=== PATIENT | male | born 1955 | race Caucasian/White ===

== ENCOUNTER 2017-12-21 22:15 | Inpatient (IN) ==
[2017-12-21] MEDS ORDERED: *HR* Bivalirudin 250 MG VIAL IVC ONE (22:41)
[2017-12-21] MEDS ORDERED: 0.9 % Sodium Chloride 1,000 ML ONE ×2 (22:41→22:48)
[2017-12-21] MEDS ORDERED: ISOVUE-370 200 ML INFUS..BTL IV ONE ×2 (22:41→23:44)
[2017-12-21] MEDS ORDERED: Heparin 1,000 UNITS/500 mL 500 ML ONE (22:41)
[2017-12-21] MEDS ORDERED: *HR* Heparin 10,000 UNIT/10 ML VIAL ONE (22:41)
[2017-12-21] MEDS ORDERED: Nitroglycerin 1,000 MCG/10 ML VIAL IV ONE (22:42)
[2017-12-21] MEDS ORDERED: *HR* Midazolam HCl 5 MG/5 ML VIAL IVP ONE (23:14)
[2017-12-21] MEDS ORDERED: *HR* Atropine Sulfate 1 MG/10 ML SYRINGE ONE (23:19)
[2017-12-21] MEDS ORDERED: Nitroglycerin 25 MG/250 ML INFUS..BTL IVC ONE (23:57)
[2017-12-22] MEDS ORDERED: Ondansetron 4 MG/2 ML VIAL IVP PRN
[2017-12-22] MEDS ORDERED: Nitroglycerin 0.4 MG TAB.SUBL SL PRN
[2017-12-22] MEDS: 0.9 % Sodium Chloride 1,000 ML IVC SCH ×2 (00:10→02:12)
[2017-12-22] MEDS: Nitroglycerin 25 MG/250 ML INFUS..BTL IVC SCH ×2 (00:10→22:00)
--- NOTE | 2017-12-22 00:25 | Pre-Sedation Evaluation ---
Pre-sedation evaluation - Pre-sedation checklist Date of procedure: 12/21/17 Procedure: left heart cath H&P (including ROS) documented in medical record: No (H&P performed preprocedure on pt arrival, documented post procedure ) Previous reaction to sedatives/anesthetics: No Dietary Status: unknown Airway Assessment: Patient can open mouth completely, TMJ function normal Dentition: No loose teeth or bridges Possible difficult airway: No ASA Classification *see protocol: CLASS IV-Severe systemic disease/constant threat to pt's life Plan of Care: Pt appropriate candidate for procedure/moderate/conscious sedation , Risks/benefits of procedure/sedation discussed w/ patient/family, If not NPO; Risk of intake outweiged by necessity to perform procedure Cardiac Registry (Cardio Only) - Functional Capacity Functional Capacity: >=4 METS without symptoms - Clincal Frailty Scale Clinical Frailty Scale: Well
--- NOTE | 2017-12-22 00:33 | Cardiology History & Physical ---
Date of Encounter: 12/22/17 Time of Encounter: 23:20 Assessment and Plan (1) ST elevation (STEMI) myocardial infarction involving left anterior descending coronary artery Current Visit: Yes Status: Acute The assessment and plan as outlined above was discussed with the patient and/or family members who expressed understanding and agreement. All questions were answered. Note H&P performed before begining LHC, documented post procedure to facilitate emergent LHC.possible. PT continues to have retosternal chest pain, initially improved with sublingual ntg, has returned, recoommend emergent LHC/poss, risk and benefits discussed, pt agrees to proceed. (2) Hypertension Current Visit: Yes Status: Acute The assessment and plan as outlined above was discussed with the patient and/or family members who expressed understanding and agreement. All questions were answered. blood pressure not fully controlled, add ntg drip to control bp for sheath management. Qualifiers: Hypertension type: essential hypertension Qualified Code(s): I10 - Essential (primary) hypertension (3) Hyperlipidemia Current Visit: Yes Status: Acute The assessment and plan as outlined above was discussed with the patient and/or family members who expressed understanding and agreement. All questions were answered. Pt reports his numbers have been borderline, will obtian fasting lipid profile. Qualifiers: Hyperlipidemia type: mixed hyperlipidemia Qualified Code(s): E78.2 - Mixed hyperlipidemia History of Present Illness Chief complaint: chest pain HPI: Mr. 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 He spent approximately fourteen hours mowing, feeding cattle ect before onset of symptoms. He sat down when diaphorsis started, felt mildly nauseous, then went inside air conditioned house. He sat for approximately thirty minutes before developed chest pain, retrosternal, pressure sensation, 8/10 at most severe, associated with mild nausea, diaphoresis, and shortness of breath. Pt went by private auto to ER, found to have ST seg elevation ME, given sl ntg with reduction in pain from 8 to 4/10, sent by ambulance to [facility] for emergent PCI for STEMI. PT is experiencing 5/10 chest pain on arrival in cath labs, shortness of breath, nausea and diaphoresis have resolved. This is his first episode of chest pain, known cardiac risk factors include morbid obesity, hypertension and hyperlipidemia. Past Med Surg Social Fam HX - Past Medical History Source: patient Medical history: hyperlipidemia, hypertension - Past Surgical History Surgical History: no surgical history - Social History Smoking Status: Smoker, status unknown Alcohol use: occasionally Drug use: none Occupational status: employed Current living situation: Home - Independent Activity Level: Independent ambulation Recent Out of Country Travel Within the Last 8 Weeks: Yes Exposure or Possible Exposure to Illness During Travel: Yes Medications and Allergies Lisinopril [Zestril] 12/22/17 [History] Lisinopril [Zestril] PO DAILY 12/22/17 [History] 3 Allergy/AdvReac Type Severity Reaction Status Date / Time Unable to Assess Allergy Unverified 12/21/17 22:44 All Systems Review: The remainder of the systems were reviewed and are negative - Cardiovascular Cardiovascular: chest pain at rest, diaphoresis, dyspnea at rest Physical Examination General: Conversant Neck: No JVD, Normal carotid pulses Cardiac: Reg Rate and Rhythm, Normal S1 and S2, No Murmur Lungs: Normal Breath Sounds Neuro: Alert and responsive, No focal deficits noted Abdomen: Soft, Non-Tender, Other (mildly obese) Skin: No rashes noted on visualized skin Musculoskeletal: No Chest Wall Tenderness Extremities: No Clubbing, No Cyanosis, No Edema, Normal Pulses Results - EKG Interpretation EKG results cardiology: personally reviewed - VTE Reasons for not Prescribing Prophylaxis: Not indicated-Anticoagulated or INR therapeutic
[2017-12-22] MEDS ORDERED: *HR* Metoprolol 5 MG/5 ML VIAL IVP ONE ×3 (01:38→06:22)
[2017-12-22] MEDS ORDERED: *HR* Atropine Sulfate 1 MG/10 ML SYRINGE ONE (02:41)
[2017-12-22 04:08] LABS: Basophils % 0.2 %; Hematocrit 43.7 % (37.5-50.1); Hemoglobin 15.2 g/dL (12.9-16.9); Immature Granulocytes % 0.3 % (0-4); Lymphocytes # 0.9 K/mcL (0.6-4.6); Mean Corpuscular HGB Conc 34.8 g/dL (31.6-35.5); Mean Corpuscular Hemoglobin 31.3 pg (28.0-33.3); Mean Corpuscular Volume 89.9 fL (83.0-100.0); Monocytes # 0.5 K/mcL (0.0-1.3); Monocytes % 3.9 %; Neutrophils # 11.5 K/mcL (1.6-8.9); Platelet Count 188 K/mcL (140-400); Red Blood Count 4.86 M/mcL (4.19-5.50); Red Cell Distribution Width 12.3 % (11.5-14.5); Segmented Neutrophils % 88.6 %
[2017-12-22 04:32] LABS: BUN/Creatinine Ratio 26 (6-26); Blood Urea Nitrogen 19 mg/dL (8-23); Calcium 9.4 mg/dL (8.6-10.3); Carbon Dioxide 22 mEq/L (23-29); Chloride 100 mEq/L (98-107); Chol/HDL Ratio 3.1 (0-4.9); Cholesterol 172 mg/dL (< 200); Glucose 130 mg/dL (70-105); HDL Cholesterol 56 mg/dL (40-59); LDL Cholesterol,Calculated 90 mg/dL (0-99); Osmolality,Calculated 280 (280-300); Potassium 3.8 mEq/L (3.5-5.1); Sodium 133 mEq/L (136-145); Triglycerides 130 mg/dL (< 150); Troponin I 0.63 ng/mL (< 0.04); eGFR For African Americans > 60 (> 60); eGFR For Non-African Americans > 60 (> 60)
--- NOTE | 2017-12-22 07:49 | Pulmonology Consult Note ---
<Yesika Cole M - Last Filed: 12/22/17 10:03> Date of Encounter: 12/22/17 Medications and Allergies Lisinopril [Zestril] 5 mg PO DAILY 12/22/17 [History] Naproxen Sodium [Aleve] 220 mg PO DAILY PRN 12/22/17 [History] 3 Allergy/AdvReac Type Severity Reaction Status Date / Time No Known Allergies Allergy Verified 12/22/17 01:30 All Systems: The remainder of the systems were reviewed and are negative Physical Examination Vital Signs: Vital Signs, Last 4 Hours Pulse Pulse Resp BP Pulse Ox 12/22/17 09:00 67 18 184/97 97 12/22/17 08:00 70 18 176/85 97 12/22/17 07:43 72 12/22/17 07:00 78 18 177/92 97 12/22/17 06:30 79 73 16 170/94 96 12/22/17 06:00 81 16 179/93 96 Results - Laboratory Findings CBC and BMP: 12/22/17 03:54 12/22/17 03:54 Abnormal lab findings: Abnormal lab results WBC 13.0 K/mcL (4.3-11.1) H 12/22/17 03:54 Neutrophils # 11.5 K/mcL (1.6-8.9) H 12/22/17 03:54 Sodium 133 mEq/L (136-145) L 12/22/17 03:54 Carbon Dioxide 22 mEq/L (23-29) L 12/22/17 03:54 Glucose 130 mg/dL (70-105) H 12/22/17 03:54 Troponin I 0.63 ng/mL (< 0.04) H* 12/22/17 03:54 - Clinical Findings Intake & Output: Intake & Output 12/21/17 12/22/17 12/22/17 23:59 07:59 15:59 Intake Total 1184.6 / 1184.6 360 / 360 Output Total 675 / 675 800 / 800 Balance 509.6 / 509.6 -440 / -440 Weight 109 kg 107.6 kg Consult Discharge Plan - Plan Referrals: NONE,PCP [Primary Care Provider] - - Attending Attestation I examined this patient and my medical decision-making was reviewed with the Resident Physician. I agree with the documented findings, disposition and treatment plan as described except to the extent set forth below. Patient seen and examined. Labs, radiology, chart personally reviewed. 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 There is no evidence of hypertension urgency or emergency. GI: Nutrition per dietary and GI prophylaxis per routine Heme: DVT prophylaxis per routine ID: No evidence of infection Renal; urine out put and renal funtion reviewed Endorcine: blood glucose is monitored Lines: all lines checked and no evidence of infections Skin: skin care to prevent pressure ulcers per nursing routine care <Anish Salmon N - Last Filed: 12/22/17 13:24> Date of Encounter: 12/22/17 Time of Encounter: 07:49 Assessment and Plan (1) ST elevation (STEMI) myocardial infarction involving left anterior descending coronary artery Current Visit: Yes Status: Acute Patient was transferred from [facility] for an acute ST elevated PR Underwent percutaneous cardiac intervention and a drug-eluting stent was placed in the proximal LAD EF 45% Patient tolerated procedure, does not complain of any chest pain at this time however does endorse some residual chest "soreness" Patient is currently on a nitro drip Patient is scheduled to have a transesophageal echo Crestor 40 mg by mouth at bedtime Ticagrelor 90 mg by mouth twice a day Aspirin 81 mg by mouth daily (2) Hypertension Current Visit: Yes Status: Chronic Patient is managed with 5 mg lisinopril at home for his hypertension His hypertension has not been controlled during his stay in the ICU with readings as high as 184/97. Patient received Lopressor and his home dose of lisinopril Spoke with Dr. Alvarenga and he said that cardiology will increase his lisinopril and Lopressor Cardiology also plans to wean down and eventually discontinue the nitro drip Qualifiers: Hypertension type: essential hypertension Qualified Code(s): I10 - Essential (primary) hypertension (3) Hyperlipidemia Current Visit: Yes Status: Chronic Continue Rosuvastatin LDL 90 HDL 56 Triglycerides 130 Qualifiers: Hyperlipidemia type: mixed hyperlipidemia Qualified Code(s): E78.2 - Mixed hyperlipidemia History of Present Illness Consult date: 12/22/17 Requesting physician: Mahamed Whitley Reason for consult: other (STEMI) Chief complaint: Fatigue, dyspnea, diaphoresis History of present illness: Patient is 62-year-old male with a past medical history of obesity, hyperlipidemia, and hypertension who presented to [facility] after experiencing acute fatigue, dyspnea, and 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 After his initial symptoms, he developed acute onset chest pain which was severe and substernal in nature which prompted him to present to the ER. In the ER he was found to have an ST elevated PR and was subsequently transferred to [facility] for cardiac catheterization. During the cardiac catheterization, he was found to have severe LAD coronary artery disease. A drug-eluting stent was placed in the proximal LAD and an EF of 45% and was discovered. This morning he describes his chest pain as a soreness, he denies any shortness of breath or any chest pressure. He has no other complaints this morning. Patient denies any history of COPD, but does admit to smoking approximately 2 cigars per week. Past Med Surg Social Fam HX - Past Medical History Medical history: hyperlipidemia, hypertension Psychiatric history: no psych history - Past Surgical History Surgical History: cholecystectomy - Social History Smoking Status: Current some day smoker (2 cigars per week) Smokeless Tobacco Status: No Alcohol use: occasionally Drug use: none All Systems: The remainder of the systems were reviewed and are negative - Constitutional Constitutional: no chills, no fever(s), no headache(s) - EENT Nose, mouth and throat: no headache(s) - Cardiovascular Cardiovascular: other (Chest soreness), no chest pain, no dyspnea - Respiratory Respiratory: no dyspnea - Gastrointestinal Gastrointestinal: no abdominal pain, no diarrhea, no nausea, no vomiting - Genitourinary Genitourinary: no dysuria - Musculoskeletal Musculoskeletal: joint pain (Right knee pain) - Integumentary Integumentary: no rash Physical Examination Vital Signs: Vital Signs, Last 4 Hours Temp Pulse Pulse Resp BP Pulse Ox 12/22/17 07:00 78 18 177/92 97 12/22/17 06:30 79 73 16 170/94 96 12/22/17 06:00 81 16 179/93 96 12/22/17 05:30 82 82 16 177/82 93 12/22/17 05:00 97.4 F L 84 20 171/90 94 12/22/17 04:52 81 80 16 179/87 94 12/22/17 04:50 86 12/22/17 04:23 85 76 14 174/23 94 07/09/18 03:49 81 80 16 172/94 95 General appearance: no acute distress Eyes: nonicteric Effort: normal Inspection: normal Auscultation: bilateral: clear Cardiovascular: regular rate and rhythm Gastrointestinal: normoactive bowel sounds, soft, non-tender, non-distended Integumentary: normal Extremities: no cyanosis Musculoskeletal: other (Pain right knee joint. No visible inflammation no palpable tenderness or deformity.) normal mental status, non-focal exam mood appropriate, affect normal Results - Laboratory Findings CBC and BMP: 12/22/17 03:54 12/22/17 03:54 Abnormal lab findings: Abnormal lab results WBC 13.0 K/mcL (4.3-11.1) H 12/22/17 03:54 Neutrophils # 11.5 K/mcL (1.6-8.9) H 12/22/17 03:54 Sodium 133 mEq/L (136-145) L 12/22/17 03:54 Carbon Dioxide 22 mEq/L (23-29) L 12/22/17 03:54 Glucose 130 mg/dL (70-105) H 12/22/17 03:54 Troponin I 0.63 ng/mL (< 0.04) H* 12/22/17 03:54 - Diagnostic Findings Chest x-ray: report reviewed, image reviewed - Clinical Findings Intake & Output: Intake & Output 12/21/17 12/21/17 12/22/17 15:59 23:59 07:59 Intake Total 1184.6 / 1184.6 Output Total 675 / 675 Balance 509.6 / 509.6 Weight 109 kg 107.6 kg
[2017-12-22] MEDS: *HR* Ticagrelor 90 MG TABLET PO SCH ×2 (07:53→21:03)
[2017-12-22] MEDS: Aspirin 81 MG TAB.CHEW PO SCH (07:54)
[2017-12-22 07:55] LABS: Estimated Average Glucose 108 mg/dl; Hemoglobin A1C 5.4 %
--- NOTE | 2017-12-22 12:42 | Event Note ---
Date of Encounter: 12/22/17 Time of Encounter: 12:30 - Cardiology Event Note S/P LHC last night for STEMI, EF 45%, severe one vessel coronary artery disease. Patient had successful PTCA/Drug-Eluting Stent placement in the proximal LAD. Reports chest "soreness", but denies actual pain. Denies dyspnea. TTE pending. Right femoral access site healing well. No bleeding, hematoma or ecchymosis noted. Troponin 0.63. Hypertensive--BP 170s systolic currently on nitro gtt at 100mcg/min, Lopressor 12.5 BID, Lisinopril 5mg daily. Has been given IV PRN Lopressor and Hydralazine. Discussed with Dr. Alvarenga. Will increase PO Antihypertensives. Increase Lisinopril to 10mg daily, Lopressor to 25mg BID. Attempt to wean off nitro gtt. Continue to follow.
[2017-12-22] MEDS: *HR* Heparin 5,000 UNIT/ML VIAL SQ SCH ×2 (13:01→17:26)
[2017-12-22] MEDS ORDERED: Melatonin 3 MG TABLET PO PRN (17:44)
--- NOTE | 2017-12-22 19:09 | Electrocardiograph Report ---
[address] [place], [place] [address] Test Date: 2017-12-22 Pat Name: Jacek Nicholas Department: 109 Room: [facility] Gender: M Senior Buyer: JOSE LUIS : 1955 Requested By: Mahamed Whitley Order Number: [id number] Reading MD: Valentin Gerard Measurements Intervals [place] Rate: 63 P: 48 KS: 149 QRS: -51 QRSD: 157 T: 18 QT: 440 QTc: 447 Interpretive Statements SINUS RHYTHM INTRAVENTRICULAR CONDUCTION DELAY Electronically Signed On 12-22-2017 19:07:20 EDT by Valentin Gerard
[2017-12-23] MEDS: *HR* Heparin 5,000 UNIT/ML VIAL SQ SCH ×2 (06:07→18:44)
[2017-12-23 06:29] LABS: Basophils % 0.2 %; Eosinophils # 0.1 K/mcL (0.0-0.6); Eosinophils % 0.7 %; Hematocrit 45.3 % (37.5-50.1); Hemoglobin 15.7 g/dL (12.9-16.9); Immature Granulocytes % 0.4 % (0-4); Lymphocytes # 1.6 K/mcL (0.6-4.6); Lymphocytes % 13.7 %; Mean Corpuscular HGB Conc 34.7 g/dL (31.6-35.5); Mean Corpuscular Hemoglobin 31.3 pg (28.0-33.3); Mean Corpuscular Volume 90.4 fL (83.0-100.0); Mean Platelet Volume 12.2 fL (9.4-12.4); Monocytes % 8.5 %; Neutrophils # 9.1 K/mcL (1.6-8.9); Platelet Count 188 K/mcL (140-400); Red Blood Count 5.01 M/mcL (4.19-5.50); Red Cell Distribution Width 12.7 % (11.5-14.5); Segmented Neutrophils % 76.5 %
[2017-12-23 06:50] LABS: BUN/Creatinine Ratio 20 (6-26); Blood Urea Nitrogen 13 mg/dL (8-23); Calcium 9.3 mg/dL (8.6-10.3); Carbon Dioxide 25 mEq/L (23-29); Chloride 104 mEq/L (98-107); Glucose 115 mg/dL (70-105); Osmolality,Calculated 283 (280-300); Potassium 3.8 mEq/L (3.5-5.1); Sodium 136 mEq/L (136-145); eGFR For African Americans > 60 (> 60); eGFR For Non-African Americans > 60 (> 60)
[2017-12-23] MEDS: Aspirin 81 MG TAB.CHEW PO SCH (08:37)
[2017-12-23] MEDS: *HR* Ticagrelor 90 MG TABLET PO SCH ×2 (08:37→19:26)
--- NOTE | 2017-12-23 09:04 | Pulmonology Progress Note ---
<JustinmarlenAnish N - Last Filed: 12/23/17 09:13> Date of Encounter: 12/23/17 Time of Encounter: 09:01 Assessment and Plan (1) ST elevation (STEMI) myocardial infarction involving left anterior descending coronary artery Current Visit: Yes Status: Acute Patient has not had any acute events since his stent placement He is currently not experiencing any chest pain or shortness of breath Remains on a nitro drip with plans to decrease the drip per cardiology recommendations Continue antihypertensives Echo pending (2) Hypertension Current Visit: Yes Status: Chronic Patient is currently receiving 10 mg lisinopril daily and 12.5 mg metoprolol twice a day His blood pressure readings continue to remain elevated He is not experiencing any chest pain, palpitations, shortness of breath We will continue to monitor and adjust antihypertensive therapy per cardiology Qualifiers: Hypertension type: essential hypertension Qualified Code(s): I10 - Essential (primary) hypertension (3) Hyperlipidemia Current Visit: Yes Status: Chronic Continue statin Qualifiers: Hyperlipidemia type: mixed hyperlipidemia Qualified Code(s): E78.2 - Mixed hyperlipidemia (4) Right calf pain Current Visit: Yes Status: Acute Patient is experiencing pain in his right calf as well as the right knee He complains that there is mild tenderness upon palpation of the right calf as well Ordered ultrasound of the right lower extremity, pending results Patient is receiving heparin 5000 units subcutaneous every 12 hours for DVT prophylaxis (5) DVT prophylaxis Current Visit: Yes Status: Acute Subcutaneous heparin Subjective Principal diagnosis: Acute STEMI status post LAD stent Interval history: Patient seen and examined at bedside this morning, he states that he feels well and is not expressing any chest pain or shortness of breath at this time. He says that his chest "soreness" has improved as well. His only complaint today is pain in his right knee as well as soreness in his right calf. He denies any headaches, fevers, chills, palpitations, cough, abdominal pain, nausea, vomiting , or diarrhea. He continues to remain hypertensive with recent blood pressure readings ranging from 146-163 systolic. Objective PUL Vital signs: Last Vital Signs Temp 97.9 F 12/23/17 04:30 Pulse 65 12/23/17 08:41 Resp 18 12/23/17 08:39 BP 159/75 12/23/17 08:39 Pulse Ox 98 12/23/17 08:41 General appearance: no acute distress, other (Sitting upright in bed, comfortable) Eyes: nonicteric Neck: supple Effort: normal Auscultation: bilateral: clear Cardiovascular: regular rate and rhythm, other (Positive S1-S2 heart sounds, No murmurs) Gastrointestinal: normoactive bowel sounds, soft, non-tender, non-distended Integumentary: normal Extremities: no cyanosis, no edema, no clubbing, other (Mild tenderness to palpation of the right calf) Musculoskeletal: no deformities mood appropriate, affect normal Results - Laboratory Findings CBC and BMP: 12/23/17 05:46 12/23/17 05:46 Abnormal lab findings: Abnormal lab results WBC 11.9 K/mcL (4.3-11.1) H 12/23/17 05:46 Neutrophils # 9.1 K/mcL (1.6-8.9) H 12/23/17 05:46 Creatinine 0.64 mg/dL (0.70-1.30) L 12/23/17 05:46 Glucose 115 mg/dL (70-105) H 12/23/17 05:46 Troponin I 0.63 ng/mL (< 0.04) H* 12/22/17 03:54 - Clinical Findings Intake & Output: Intake & Output 12/22/17 12/23/17 12/23/17 23:59 07:59 15:59 Intake Total 635.4 / 635.4 150 / 150 Output Total 650 / 650 1125 / 1125 Balance -14.6 / -14.6 -975 / -975 Weight 105.6 kg - VTE Reasons for not Prescribing Prophylaxis: Not indicated-Anticoagulated or INR therapeutic Consult Discharge Plan - Plan Referrals: NONE,PCP [Non-Partnered Physician] - <Yesika Cole - Last Filed: 12/23/17 16:38> Date of Encounter: 12/23/17 Objective PUL Vital signs: Last Vital Signs Temp 98.1 F 12/23/17 08:00 Pulse 70 12/23/17 15:38 Resp 12 12/23/17 15:38 BP 150/78 12/23/17 15:38 Pulse Ox 97 12/23/17 15:38 Results - Laboratory Findings CBC and BMP: 12/23/17 05:46 12/23/17 05:46 Abnormal lab findings: Abnormal lab results WBC 11.9 K/mcL (4.3-11.1) H 12/23/17 05:46 Neutrophils # 9.1 K/mcL (1.6-8.9) H 12/23/17 05:46 Creatinine 0.64 mg/dL (0.70-1.30) L 12/23/17 05:46 Glucose 115 mg/dL (70-105) H 12/23/17 05:46 Troponin I 0.63 ng/mL (< 0.04) H* 12/22/17 03:54 - Clinical Findings Intake & Output: Intake & Output 12/23/17 12/23/17 12/23/17 07:59 15:59 23:59 Intake Total 150 / 150 Output Total 1125 / 1125 Balance -975 / -975 - - Attending Attestation I examined this patient and my medical decision-making was reviewed with the Resident Physician. I agree with the documented findings, disposition and treatment plan as described except to the extent set forth below. Patient seen and examined. Labs, radiology, chart personally reviewed. 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 GI: Nutrition per dietary and GI prophylaxis per routine Heme: DVT prophylaxis per routine Renal; urine out put and renal funtion reviewed Endorcine: blood glucose is monitored Lines: all lines checked and no evidence of infections Skin: skin care to prevent pressure ulcers per nursing routine care Patient hemodynamically stable and stable from critical care point of view to be transferred to ICU, however will defer to cardiology.
--- NOTE | 2017-12-23 13:33 | Cardiology Progress Note ---
Date of Encounter: 12/23/17 Time of Encounter: 13:30 Assessment and Plan (1) ST elevation (STEMI) myocardial infarction involving left anterior descending coronary artery Current Visit: Yes Status: Acute STEMI, s/p [facility] night of 12/21/17, EF 45%, severe one vessel coronary artery disease. Patient had successful PTCA/Drug-Eluting Stent placement in the proximal LAD. Troponin 0.63. DAPT (ASA and Brilinta) uninterrupted x 1 year. Pt verbalizes understanding. On BB, Statin, ACEi. TTE EF mildly reduced--45-50%, moderate cLVH. Mild segmental left ventricular systolic dysfunction. Mild LVDD. No significant valvular dysfunction. Pt denies chest pain or dyspnea. On nitro gtt for BP control--improving and weaning off. Right femoral access site healing well. No bleeding or hematoma noted. Mild ecchymosis. No events on tele. Plan to step down out of ICU today. If continues to be stable, D/C home tomorrow. (2) CAD (coronary artery disease) Current Visit: Yes Status: Acute ASA, Brilinta, Statin, BB, ACEi. Qualifiers: Coronary Disease-Associated Artery/Lesion type: [place] artery [place] vs. transplanted heart: [place] heart Associated angina: angina presence unspecified Qualified Code(s): I25.10 - Atherosclerotic heart disease of [place] coronary artery without angina pectoris (3) Cardiomyopathy Current Visit: Yes Status: Acute TTE EF mildly reduced, 45-50%, moderate cLVH. Mild segmental left ventricular systolic dysfunction. Mild LVDD. No significant valvular dysfunction. Euvolemic on exam. Continue BB and ACEi. Qualifiers: Cardiomyopathy type: ischemic Qualified Code(s): I25.5 - Ischemic cardiomyopathy (4) Hypertension Current Visit: Yes Status: Chronic Improving with PO antihypertensive increases. Nitro gtt being weaned off--was on 100mcg yesterday, today 20mcg. Qualifiers: Hypertension type: essential hypertension Qualified Code(s): I10 - Essential (primary) hypertension (5) Right calf pain Current Visit: Yes Status: Acute RLE duplex negative for DVT. On SQ heparin for DVT prophylaxis. Discussion w patient/family: The assessment and plan as outlined above was discussed with the patient and/or family members who expressed understanding and agreement. All questions were answered. Thank you for involving us in the care of your patient. Please call with any questions. I will discuss all the above with Dr. Alvarenga and make changes as necessary. Subjective Principal diagnosis: Acute STEMI status post LAD stent Interval history: Pt denies chest pain or dyspnea overnight. BP improving, nitro gtt weaned down to 20mcg. TTE resulted--EF 45-50%, moderate cLVH. Mild segmental left ventricular systolic dysfunction. Mild LVDD. No significant valvular dysfunction. Objective Vital Signs, Last 4 Hours Pulse Resp BP Pulse Ox 12/23/17 11:54 63 12 127/78 97 12/23/17 10:53 66 12 136/71 97 Vital Signs Temp Pulse Resp BP Pulse Ox 12/23/17 11:54 63 12 127/78 97 12/23/17 10:53 66 12 136/71 97 12/23/17 09:09 65 12 133/80 97 12/23/17 08:41 65 98 12/23/17 08:39 70 18 159/75 98 12/23/17 08:00 98.1 F 12/23/17 06:00 60 18 146/87 96 12/23/17 05:00 60 16 163/84 97 12/23/17 04:30 97.9 F 57 18 161/79 96 12/23/17 03:00 57 16 143/67 97 12/23/17 02:30 56 14 152/83 97 12/23/17 01:00 56 12 139/63 98 12/23/17 00:30 55 12 136/62 97 12/22/17 23:49 98.3 F 12/22/17 23:00 53 14 137/85 97 12/22/17 22:00 71 18 137/85 98 12/22/17 21:00 61 16 122/68 97 12/22/17 20:00 97.8 F 63 14 126/56 97 12/22/17 19:00 71 14 143/87 98 12/22/17 18:54 12 159/82 98 12/22/17 17:17 71 10 148/85 97 12/22/17 16:18 10 145/62 12/22/17 15:44 98.0 F 12/22/17 13:55 67 15 159/84 96 Intake and Output 12/22/17 12/23/17 12/23/17 23:59 07:59 15:59 Intake Total 635.4 / 635.4 150 / 150 Output Total 650 / 650 1125 / 1125 Balance -14.6 / -14.6 -975 / -975 Intake: IV Fluids 75.4 / 75.4 150 / 150 Nitroglycerin Premix 25 MG/250 75.4 / 75.4 150 / 150 ML 25 mg In 250 ml @ 10 MCG/MIN 6 mls/hr IVC .Q24H LUZ MARIA Rx#: [id number] Oral 560 / 560 Output: Urine 650 / 650 1125 / 1125 Other: Meal Dinner Percent of Meal Consumed 55% Stool Size Large Moderate Stool Consistency formed formed Stool Characteristics Normal for Patient Stool Color Brown Brown # Voids 1 # Bowel Movements 1 Weight 105.6 kg General: Conversant, No Apparent Distress HEENT: Atraumatic, Normocephaly, Mucus Membranes Moist Neck: No JVD, Normal carotid pulses Cardiac: Reg Rate and Rhythm, Normal S1 and S2, No Murmur Lungs: Normal Breath Sounds, No Wheeze, Rales, Rhonchi Neuro: Alert and responsive, No focal deficits noted Abdomen: Soft, Non-Tender Skin: Other (right femoral access site healing well. No bleeding or hematoma, mild ecchymosis) Musculoskeletal: No Chest Wall Tenderness Extremities: No Clubbing, No Cyanosis, No Edema, Normal Pulses Results 12/23/17 05:46 12/23/17 05:46 Lab Results 12/23/17 12/23/17 05:46 05:46 WBC 11.9 H Hgb 15.7 Hct 45.3 Plt Count 188 Sodium 136 Potassium 3.8 Chloride 104 Carbon Dioxide 25 BUN 13 Creatinine 0.64 L Glucose 115 H Calcium 9.3 Short CBC 12/23/17 Range/Units 05:46 WBC 11.9 H (4.3-11.1) K/mcL Hgb 15.7 (12.9-16.9) g/dL Hct 45.3 (37.5-50.1) % Plt Count 188 (140-400) K/mcL Neutrophils # 9.1 H (1.6-8.9) K/mcL BMP 12/23/17 Range/Units 05:46 Sodium 136 (136-145) mEq/L Potassium 3.8 (3.5-5.1) mEq/L Chloride 104 (98-107) mEq/L Carbon Dioxide 25 (23-29) mEq/L BUN 13 (8-23) mg/dL Creatinine 0.64 L (0.70-1.30) mg/dL Glucose 115 H (70-105) mg/dL Calcium 9.3 (8.6-10.3) mg/dL Impressions Chest X-Ray 12/22/17 09:15 IMPRESSION: No acute cardiopulmonary process. D/ / 12/22/2017 09:34:17 [facility] Interpreting Provider: Heike Polk MD Echocardiogram 12/23/17 00:00 Impressions: LVEF 45-50%. Normal LV chamber size. Moderate concentric left ventricular hypertrophy. Mild segmental left ventricular systolic dysfunction. Mild left ventricular diastolic dysfunction. Normal right ventricular structure and function. No evidence of pulmonary hypertension. No significant valvular dysfunction. Left Ventricular Wall Motion: Rest Echo Findings The apex and apical inferior lagunas were hypokinetic. All other wall segments showed normal motion. Findings: Study Quality * Technically adequate exam. ECG Findings * Normal sinus rhythm. Left Ventricle * LVEF 45-50%. * Normal LV chamber size. * Moderate concentric left ventricular hypertrophy. * Mild segmental left ventricular systolic dysfunction. * Mild left ventricular diastolic dysfunction. Right Ventricle * Normal right ventricular structure and function. Left Atrium * Moderately dilated left atrium. Right Atrium * Mildly dilated right atrium. Aortic Valve * Trileaflet aortic valve with normal function. * No aortic regurgitation. * No aortic stenosis. Mitral Valve * Normal mitral valve structure and function. * No mitral stenosis. * Trace mitral regurgitation. Tricuspid Valve * Normal tricuspid valve structure and function. * Trace tricuspid regurgitation. * No evidence of pulmonary hypertension. Pulmonic Valve * Normal pulmonic valve structure and function. * No pulmonic regurgitation. Aorta * Normally sized aortic root. Pericardium * The pericardium appears normal. IVC * Normal IVC dimensions and inspiratory collapse. Pulmonary Artery * Normal visualized portions of the main pulmonary artery. Active Medications Acetaminophen (Tylenol) 500 mg PO Q6HR PRN PRN Reason: Mild Pain Stop: 06/23/18 00:01 Last Admin: 12/23/17 11:00 Dose: 500 mg Aspirin (Aspirin) 81 mg PO DAILY LUZ MARIA Stop: 06/23/18 09:01 Last Admin: 12/23/17 08:37 Dose: 81 mg Heparin Sodium (Porcine) (Heparin) 5,000 unit SQ Q12HCO [facility] Stop: 06/23/18 11:16 Last Admin: 12/23/17 06:07 Dose: 5,000 unit Hydralazine HCl (Hydralazine) 10 mg IVP Q6HR PRN PRN Reason: Hypertension Stop: 06/23/18 02:10 Last Admin: 12/22/17 09:58 Dose: 10 mg Nitroglycerin (Nitroglycerin Premix 25 Mg/250 Ml) 25 mg in 250 mls @ 6 mls/hr IVC .Q24H LUZ MARIA; 10 MCG/MIN PRN Reason: Protocol Stop: 06/23/18 00:31 Last Titration: 12/23/17 06:05 Dose: 60 mcg/min, 36 mls/hr Lisinopril (Zestril) 20 mg PO DAILY LUZ MARIA PRN Reason: Protocol Stop: 06/25/18 09:01 Melatonin (Melatonin) 3 mg PO HS PRN PRN Reason: Insomnia Stop: 06/23/18 17:45 Last Admin: 12/22/17 21:03 Dose: 3 mg Metoprolol Tartrate (Lopressor) 12.5 mg PO BID [facility] Stop: 06/23/18 09:01 Last Admin: 12/23/17 08:36 Dose: 12.5 mg Nitroglycerin (Nitroglycerin) 0.4 mg SL Q5MIN PRN PRN Reason: Chest Pain Stop: 06/23/18 00:01 Ondansetron HCl (Zofran) 4 mg IVP Q8HR PRN PRN Reason: Nausea And Vomiting Stop: 06/23/18 00:01 Rosuvastatin Calcium (Crestor) 40 mg PO HS [facility] Stop: 06/23/18 21:01 Last Admin: 12/22/17 21:03 Dose: 40 mg Ticagrelor (Brilinta) 90 mg PO BID [facility] Stop: 06/23/18 09:01 Last Admin: 12/23/17 08:37 Dose: 90 mg - Imaging and Cardiology Echo: report reviewed Cardiac cath: report reviewed - EKG Interpretation EKG results cardiology: other (12 hr tele AVG HR 63, SR, no significant pauses or arrhythmias noted.) - VTE Reasons for not Prescribing Prophylaxis: Not indicated-Anticoagulated or INR therapeutic Consult Discharge Plan - Plan Referrals: NONE,PCP [Non-Partnered Physician] -
[2017-12-23] MEDS ORDERED: Nitroglycerin 25 MG/250 ML INFUS..BTL IVC SCH (14:42)
[2017-12-23] MEDS ORDERED: Melatonin 3 MG TABLET PO PRN (14:42)
[2017-12-23] MEDS ORDERED: Ondansetron 4 MG/2 ML VIAL IVP PRN (14:42)
[2017-12-23] MEDS ORDERED: Nitroglycerin 0.4 MG TAB.SUBL SL PRN (14:42)
[2017-12-24 05:36] LABS: Basophils % 0.4 %; Eosinophils # 0.1 K/mcL (0.0-0.6); Eosinophils % 1.2 %; Hematocrit 42.3 % (37.5-50.1); Hemoglobin 14.1 g/dL (12.9-16.9); Immature Granulocytes % 0.2 % (0-4); Lymphocytes # 1.9 K/mcL (0.6-4.6); Lymphocytes % 21.5 %; Mean Corpuscular HGB Conc 33.3 g/dL (31.6-35.5); Mean Corpuscular Hemoglobin 30.4 pg (28.0-33.3); Mean Corpuscular Volume 91.2 fL (83.0-100.0); Monocytes # 0.8 K/mcL (0.0-1.3); Monocytes % 8.8 %; Neutrophils # 6.1 K/mcL (1.6-8.9); Platelet Count 181 K/mcL (140-400); Red Blood Count 4.64 M/mcL (4.19-5.50); Red Cell Distribution Width 12.8 % (11.5-14.5); Segmented Neutrophils % 67.9 %
[2017-12-24 05:59] LABS: BUN/Creatinine Ratio 23 (6-26); Blood Urea Nitrogen 18 mg/dL (8-23); Carbon Dioxide 25 mEq/L (23-29); Chloride 103 mEq/L (98-107); Glucose 101 mg/dL (70-105); Osmolality,Calculated 284 (280-300); Potassium 3.9 mEq/L (3.5-5.1); Sodium 136 mEq/L (136-145); eGFR For African Americans > 60 (> 60); eGFR For Non-African Americans > 60 (> 60)
[2017-12-24] MEDS: *HR* Heparin 5,000 UNIT/ML VIAL SQ SCH (06:33)
--- NOTE | 2017-12-24 07:36 | Pulmonology Progress Note ---
<JustinmarlenAnish N - Last Filed: 12/24/17 08:16> Date of Encounter: 12/24/17 Time of Encounter: 07:47 Assessment and Plan (1) ST elevation (STEMI) myocardial infarction involving left anterior descending coronary artery Status: Acute Patient has not had any acute events since his stent placement started on dual antiplatelet therapy. Echo revealed an ejection fraction of 45-50% with mild left ventricular systolic dysfunction. Continue beta samantha and ALISIA inhibitor Patient denies any chest pain or shortness of breath Patient is currently stable and awaiting bed in the stepdown unit. (2) Hypertension Status: Chronic Hypertension has improved, recent readings within normal ranges Nitro drip has been discontinued Continue antihypertensive regimen Qualifiers: Hypertension type: essential hypertension Qualified Code(s): I10 - Essential (primary) hypertension (3) Hyperlipidemia Status: Chronic Continue statin Patient on dual antiplatelet therapy for 1 year Qualifiers: Hyperlipidemia type: mixed hyperlipidemia Qualified Code(s): E78.2 - Mixed hyperlipidemia (4) Right calf pain Status: Acute Right lower extremity Doppler was negative Patient is on subcutaneous heparin therapy (5) DVT prophylaxis Status: Acute Subcutaneous heparin Subjective Principal diagnosis: Acute STEMI status post LAD stent Interval history: Patient was seen and examined at bedside this morning. He is sitting upright, and denies any complaints. No acute events overnight, patient states that he has not experienced any chest pain, shortness of breath, or palpitations. His blood pressures has remained stable and within normal range overnight, and his nitro drip has been discontinued. Patient denies any headaches, fevers, chills , cough, abdominal pain, nausea, vomiting, or diarrhea. Objective PUL Vital signs: Last Vital Signs Temp 98.5 F 12/24/17 04:55 Pulse 56 12/24/17 04:07 Resp 14 12/24/17 04:07 BP 136/77 12/24/17 04:07 Pulse Ox 97 12/24/17 04:07 General appearance: no acute distress Eyes: nonicteric Neck: supple Effort: normal Auscultation: bilateral: clear Cardiovascular: regular rate and rhythm Gastrointestinal: normoactive bowel sounds, soft, non-tender, non-distended Integumentary: normal Extremities: no cyanosis, no edema, no clubbing Musculoskeletal: no deformities normal mental status, non-focal exam mood appropriate, affect normal Results - Laboratory Findings CBC and BMP: 12/24/17 05:15 07/11/18 05:15 Abnormal lab findings: Abnormal lab results Troponin I 0.63 ng/mL (< 0.04) H* 12/22/17 03:54 - Clinical Findings Intake & Output: Intake & Output 12/23/17 12/23/17 12/24/17 15:59 23:59 07:59 Intake Total 30 / 30 Output Total 300 / 300 300 / 300 Balance -1 / -1 -270 / -270 -300 / -300 Weight 103.5 kg - VTE Reasons for not Prescribing Prophylaxis: Not indicated-Anticoagulated or INR therapeutic Consult Discharge Plan - Plan Instructions: Right Heart Catheterization (DC) Additional Instructions: RISK FACTORS: STOP SMOKING: If you smoke, STOP. Smoking or tobacco use significantly increases your risk of heart disease because nicotine causes the arteries to narrow or constrict. It also causes fats to stick to the artery. Your chances of having a heart attack are greatly increased if you continue to smoke. For more information, call the education line for smoking cessation 1-372-LUIFOQY EAT A LOW FAT/CHOLESTEROL/SODIUM DIET: This diet may help reduce your chances of having a heart attack. LIFTING: Avoid lifting anything more than 10 pounds for 5-7 days Prior to straining, laughing, sneezing and/or coughing, apply manual pressure directly over insertion site. ACTIVITY: You may walk or climb stairs as tolerated You can resume sexual activity as tolerated In general, you are encouraged to engage in a minimum of 30 minutes or more of moderate intensity physical activity, such as brisk walking, daily or at least 3 -4 times weekly BATHING Do not submerge the site into water (bath tub, hot tub, swimming pool) for 1 week. This can be a source for infection into the blood stream. You may shower after 24 hours SITE CARE: After 24 hours, you may remove the dressing and leave the site open to air. Keep the site clean and dry. Clean gently and pat dry. You can expect bruising and tenderness that gradually resolve within a week or two. Return to work as instructed per your physician Resume driving as instructed per physician Keep all scheduled follow up appointments Resume medications as instructed IMPORTANT: If prescribed a Platelet Aggregation Inhibitor such as, Plavix, Brilinta or Effient: Duration of therapy is minimum one year These medications are often used in combination with Aspirin in prevention of future heart attacks Never discontinue unless consult with your Community Outreach Director STROKE (CVA) Risk factors for a stroke are: Age, cigarette smoking, diabetes, excessive alcohol consumption, family history, high blood pressure, overweight, physical inactivity, prior stroke, heart attack, diagnosis of carotid artery stenosis or other artery disease. Warning signs: Sudden numbness or weakness of the face, arm or leg; especially on one side of the body, sudden confusion, trouble speaking or understanding, sudden trouble seeing in one or both eyes, sudden trouble walking, dizziness, loss of balance or coordination, sudden severe headache with no cause. Call 911 or go to the Emergency Room. CONGESTIVE HEART FAILURE: If you have been diagnosed with Congestive Heart Failure (CHF) and your symptoms return, make an appointment with your physician Weigh yourself daily. Notify your physician if you have a weight gain of two or more pounds in one day or five or more pounds in one week. If you experience any difficulty breathing, please call 911 BLEEDING: Although the risk of bleeding is minimal, it can happen. If you have any bleeding from the site, apply firm pressure above the puncture site for 10-15 minutes. If the bleeding does not stop, continue manual pressure and call 911 Contact your physician if: You develop a fever greater than 101 degrees Fahrenheit Your site becomes reddened or has any drainage You have an increase in pain or burning at the site or if a large knot forms at the site. If you experience chest pain, shortness of breath, dizziness, or extreme tiredness, stop the activity and rest. Please notify your physicians office if you experience any of these symptoms and they are not relieved by rest please call 911! Referrals: Phoenix Neumann, [employer] [Advanced Practice Nurse] - (CARDIOLOGY OFFICE WILL CONTACT YOU ABOUT YOUR APPOINTMENT.) NONE,PCP [Non-Partnered Physician] - 12/31/17 2:30 pm (PATIENT WILL BE SEEN BY THE NURSE PRACTITIONER (ROWDY ROSENBAUM) IN 'S OFFICE. OFFICE NUMBER: [phone] ) Prescriptions: Nitroglycerin 0.4 mg SL Q5MIN PRN #30 tab.subl PRN Reason: Chest Pain Aspirin 81 mg PO DAILY #30 tab.chew Lisinopril [Zestril] 20 mg PO DAILY #30 tablet Metoprolol [Lopressor] 12.5 mg PO BID #30 tablet Rosuvastatin [Crestor] 40 mg PO HS #30 tablet Ticagrelor [Brilinta] 90 mg PO BID #60 tablet <Yesika Cole - Last Filed: 12/24/17 15:50> Date of Encounter: 12/24/17 Objective PUL Vital signs: Last Vital Signs Temp 97.6 F 12/24/17 11:55 Pulse 60 12/24/17 13:50 Resp 18 12/24/17 13:50 BP 117/57 12/24/17 13:50 Pulse Ox 97 12/24/17 13:50 Results - Laboratory Findings CBC and BMP: 12/24/17 05:15 12/24/17 05:15 Abnormal lab findings: Abnormal lab results Troponin I 0.63 ng/mL (< 0.04) H* 12/22/17 03:54 - Clinical Findings Intake & Output: Intake & Output 12/23/17 12/24/17 12/24/17 23:59 07:59 15:59 Intake Total 30 / 30 360 / 360 Output Total 300 / 300 300 / 300 500 / 500 Balance -270 / -270 -300 / -300 -140 / -140 Weight 103.5 kg - Attending Attestation I examined this patient and my medical decision-making was reviewed with the Resident Physician. I agree with the documented findings, disposition and treatment plan as described except to the extent set forth below. Patient seen and examined. Labs, radiology, chart personally reviewed. 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 Will follow-up when necessary please call for any questions. Cardiology is seeing patient. GI: Nutrition per dietary and GI prophylaxis per routine Heme: DVT prophylaxis per routine Renal; urine out put and renal funtion reviewed Endorcine: blood glucose is monitored Lines: all lines checked and no evidence of infections Skin: skin care to prevent pressure ulcers per nursing routine care
[2017-12-24] MEDS: *HR* Ticagrelor 90 MG TABLET PO SCH (08:51)
[2017-12-24] MEDS ORDERED: Aspirin 81 MG TAB.CHEW PO SCH (09:00)
[2017-12-24] MEDS ORDERED: Lisinopril 20 MG TABLET PO SCH ×2 (09:00)
--- NOTE | 2017-12-24 11:13 | Discharge Summary ---
Orders not resulted at time of discharge: Pending orders 12/23/17 07:00 ECG 12 lead ECG [ECG] Routine 12/25/17 04:00 BMP [Basic Metabolic Panel] AM 0400 CBC [Complete Blood Count] [HEME] AM 0400 Date of Encounter: 12/24/17 Time of Encounter: 11:09 - Discharge Diagnosis (1) ST elevation (STEMI) myocardial infarction involving left anterior descending coronary artery Priority: Primary Status: Acute (2) CAD (coronary artery disease) Priority: Primary Status: Acute Qualifiers: Coronary Disease-Associated Artery/Lesion type: [place] artery [place] vs. transplanted heart: [place] heart Associated angina: angina presence unspecified Qualified Code(s): I25.10 - Atherosclerotic heart disease of [place] coronary artery without angina pectoris (3) Cardiomyopathy Priority: Secondary Status: Acute Qualifiers: Cardiomyopathy type: ischemic Qualified Code(s): I25.5 - Ischemic cardiomyopathy (4) Hypertension Priority: Secondary Status: Chronic Qualifiers: Hypertension type: essential hypertension Qualified Code(s): I10 - Essential (primary) hypertension - Hospital Course Hospital course: Mr. Nicholas is a 62 year old male PMH of HTN that presented as a STEMI, s/p [facility] night of 12/21/17, EF 45%, severe one vessel coronary artery disease. Patient had successful PTCA/Drug-Eluting Stent placement in the proximal LAD. Troponin 0.63. DAPT (ASA and Brilinta) uninterrupted x 1 year. Pt verbalizes understanding. On BB, Statin, ACEi. TTE EF mildly reduced--45-50%, moderate cLVH. Mild segmental left ventricular systolic dysfunction. Mild LVDD. No significant valvular dysfunction. Pt denies chest pain or dyspnea. Was on nitro gtt for BP control, now controlled and nitro gtt was stopped yesterday. Right femoral access site healing well. No bleeding or hematoma noted. Mild ecchymosis. No events on tele. Had right calf pain yesterday, RLE duplex negative for DVT. D/C home today in stable condition. Labs and vitals stable. Will coordinate outpt follow- up in 1 week. Restrictions discussed. - Time Spent with Patient Total time spent providing and/or coordinating discharge services: Less than 30 minutes - Discharge Medications Prescriptions: Nitroglycerin 0.4 mg SL Q5MIN PRN #30 tab.subl PRN Reason: Chest Pain Aspirin 81 mg PO DAILY #30 tab.chew Lisinopril [Zestril] 20 mg PO DAILY #30 tablet Metoprolol [Lopressor] 12.5 mg PO BID #30 tablet Rosuvastatin [Crestor] 40 mg PO HS #30 tablet Ticagrelor [Brilinta] 90 mg PO BID #60 tablet Home Medications: Naproxen Sodium [Aleve] 220 mg PO DAILY PRN 12/22/17 [History] Aspirin 81 mg PO DAILY #30 tab.chew 12/24/17 [Rx] Lisinopril [Zestril] 20 mg PO DAILY #30 tablet 12/24/17 [Rx] Metoprolol [Lopressor] 12.5 mg PO BID #30 tablet 12/24/17 [Rx] Nitroglycerin 0.4 mg SL Q5MIN PRN #30 tab.subl 12/24/17 [Rx] Rosuvastatin [Crestor] 40 mg PO HS #30 tablet 12/24/17 [Rx] Ticagrelor [Brilinta] 90 mg PO BID #60 tablet 12/24/17 [Rx] Allergies/Adverse Reactions: 3 Allergy/AdvReac Type Severity Reaction Status Date / Time No Known Allergies Allergy Verified 12/22/17 01:30 Date of admission: 12/22/17 16:53 Primary care physician: Tyrel Briscoe DO Consults: 12/22/17 00:00 Consult to Cardiac Rehabilitation-Phase1 [CONS] Routine Comment: Reason for Consult: AMI Call Completed: Yes Consult to Nurse Navigator [CONS] Routine Comment: Discharging clinician: Phoenix Neumann Anticipated date of discharge: 12/24/17 Physical Examination Vital Signs, Last 4 Hours Temp Pulse 12/24/17 09:20 78 12/24/17 08:03 97.6 F 12/24/17 07:37 63 Vital Signs Temp Pulse Resp BP Pulse Ox 12/24/17 09:20 78 12/24/17 08:03 97.6 F 12/24/17 07:37 63 12/24/17 07:00 97.6 F 61 18 133/72 95 12/24/17 04:55 98.5 F 12/24/17 04:07 56 14 136/77 97 12/23/17 23:30 61 12/23/17 23:28 98.5 F 60 12 132/67 97 12/23/17 20:43 97.3 F L 12/23/17 19:32 60 14 149/74 99 12/23/17 19:30 60 12/23/17 18:41 68 12 136/79 97 12/23/17 16:30 68 12 126/70 97 12/23/17 15:38 70 12 150/78 97 12/23/17 14:40 78 12 96/52 99 12/23/17 13:51 63 12 121/67 97 12/23/17 11:54 63 12 127/78 97 Intake and Output 12/23/17 12/24/17 12/24/17 23:59 07:59 15:59 Intake Total 30 / 30 Output Total 300 / 300 300 / 300 200 / 200 Balance -270 / -270 -300 / -300 -200 / -200 Intake: Oral 30 / 30 Output: Urine 300 / 300 300 / 300 200 / 200 Other: Weight 103.5 kg Patient Weight 12/24/17 23:59 Weight 103.5 kg General: Conversant, No Apparent Distress HEENT: Atraumatic, Normocephaly, Mucus Membranes Moist Neck: No JVD, Normal carotid pulses Cardiac: Reg Rate and Rhythm, Normal S1 and S2, No Murmur Lungs: Normal Breath Sounds, No Wheeze, Rales, Rhonchi Neuro: Alert and responsive, No focal deficits noted Abdomen: Soft, Non-Tender Skin: Other (right femoral access site healing well. No bleeding or hematoma noted. Mild ecchymosis.) Musculoskeletal: No Chest Wall Tenderness Extremities: No Clubbing, No Cyanosis, No Edema, Normal Pulses - Patient Status Disposition: Home, Self-Care Condition: Fair Functional capacity at discharge: independent ambulation Overall status at discharge: patient is progressing back to baseline - Discharge Instructions Follow Up With: NONE,PCP [Non-Partnered Physician] - Additional Instructions: RISK FACTORS: STOP SMOKING: If you smoke, STOP. Smoking or tobacco use significantly increases your risk of heart disease because nicotine causes the arteries to narrow or constrict. It also causes fats to stick to the artery. Your chances of having a heart attack are greatly increased if you continue to smoke. For more information, call the education line for smoking cessation 8-184-FUUUXUM EAT A LOW FAT/CHOLESTEROL/SODIUM DIET: This diet may help reduce your chances of having a heart attack. LIFTING: Avoid lifting anything more than 10 pounds for 5-7 days Prior to straining, laughing, sneezing and/or coughing, apply manual pressure directly over insertion site. ACTIVITY: You may walk or climb stairs as tolerated You can resume sexual activity as tolerated In general, you are encouraged to engage in a minimum of 30 minutes or more of moderate intensity physical activity, such as brisk walking, daily or at least 3 -4 times weekly BATHING Do not submerge the site into water (bath tub, hot tub, swimming pool) for 1 week. This can be a source for infection into the blood stream. You may shower after 24 hours SITE CARE: After 24 hours, you may remove the dressing and leave the site open to air. Keep the site clean and dry. Clean gently and pat dry. You can expect bruising and tenderness that gradually resolve within a week or two. Return to work as instructed per your physician Resume driving as instructed per physician Keep all scheduled follow up appointments Resume medications as instructed IMPORTANT: If prescribed a Platelet Aggregation Inhibitor such as, Plavix, Brilinta or Effient: Duration of therapy is minimum one year These medications are often used in combination with Aspirin in prevention of future heart attacks Never discontinue unless consult with your Hopper Attendant STROKE (CVA) Risk factors for a stroke are: Age, cigarette smoking, diabetes, excessive alcohol consumption, family history, high blood pressure, overweight, physical inactivity, prior stroke, heart attack, diagnosis of carotid artery stenosis or other artery disease. Warning signs: Sudden numbness or weakness of the face, arm or leg; especially on one side of the body, sudden confusion, trouble speaking or understanding, sudden trouble seeing in one or both eyes, sudden trouble walking, dizziness, loss of balance or coordination, sudden severe headache with no cause. Call 911 or go to the Emergency Room. CONGESTIVE HEART FAILURE: If you have been diagnosed with Congestive Heart Failure (CHF) and your symptoms return, make an appointment with your physician Weigh yourself daily. Notify your physician if you have a weight gain of two or more pounds in one day or five or more pounds in one week. If you experience any difficulty breathing, please call 911 BLEEDING: Although the risk of bleeding is minimal, it can happen. If you have any bleeding from the site, apply firm pressure above the puncture site for 10-15 minutes. If the bleeding does not stop, continue manual pressure and call 911 Contact your physician if: You develop a fever greater than 101 degrees Fahrenheit Your site becomes reddened or has any drainage You have an increase in pain or burning at the site or if a large knot forms at the site. If you experience chest pain, shortness of breath, dizziness, or extreme tiredness, stop the activity and rest. Please notify your physicians office if you experience any of these symptoms and they are not relieved by rest please call 911! - Diet and Activity Activity: increase activity as tolerated Diet: low fat, low cholesterol - VTE Reasons for not Prescribing Prophylaxis: Not indicated-Anticoagulated or INR therapeutic
[2017-12-24 14:09] VITALS: BP 117/57
== END 2017-12-24 14:00 | disposition home or self-care (01) | DRG 247 ==
LOC: ICNU
PROVIDERS: ADMIT Internal Medicine Cardiovascular Disease; ATTEND Internal Medicine Cardiovascular Disease